=== PATIENT | female | born 1940 | race Caucasian/White ===

== ENCOUNTER 2018-08-04 08:16 | Day surgery (SDC) | payer MEDICARE, MEDICAID, SELFPAY ==
[2018-08-04] VITALS (15 sets, daily range): BP systolic 90–151; BP diastolic 63–88; PULSE 61–85; RESP 14–16; TEMP 36.1–36.5; O2SAT 94–100; BMI 22.4
--- NOTE | 2018-08-04 10:19 | PCM.HP.STD ---
Problem List (1) Urinary tract infection Status: Acute (2) Urinary retention Status: Acute (3) Neurogenic bladder Status: Acute History of Present Illness Date of Admission: 08/04/18 Chief Complaint: recurrent UTI with hematuria, urinary retention, neurogenic bladder The patient is a 78 year old F with a history of ruptured cerebral aneurysm with subsequent neurogenic bladder, urinary retention chronic suprapubic tube with recurrent urinary tract infections. She has been having gross hematuria with her infections and has not had a cystoscopy in some time. She did not tolerate attempted cystoscopy in the office. She now presents for evaluation under anesthesia. The family today reports that she has not been eating or drinking and has lost 18 pounds in the last month. She did present to the emergency room approximately 1 week ago received antibiotics and intravenous fluid resuscitation. She was doing well when I saw her in the office approximately 3 days after that. Family reports that she has had significant decrease in oral intake, has decreased interaction with the family and they are concerned about her overall health. Past Medical History Medical History: Medical History (Last Updated 08/04/18 @ 10:23 by Aniya Ramachandran MD) Hypothyroid E03.9 Neurogenic bladder N31.9 Urinary tract infection associated with cystostomy catheter T83.510A, N39.0 Allergies erythromycin base Allergy (Verified 08/04/18 08:45) Anaphylaxis levofloxacin [From Levaquin] Allergy (Verified 08/04/18 08:45) Anaphylaxis nitrofurantoin [From Macrodantin] Allergy (Verified 08/04/18 08:45) Hives Penicillins [PCN] Allergy (Verified 08/04/18 08:45) Hives Home Medications: Ambulatory Orders Medication Instructions Recorded Cranberry 500 mg PO DAILY 07/28/18 Ducolax Suppository 1 tab RECTALLY PRN PRN 07/28/18 Levetiracetam [Roweepra] 500 mg PO BID 07/28/18 Levothyroxine [Synthroid] 50 mcg PO DAILY 07/28/18 Stratton-3 Fatty Acids/Fish Oil [Fish 1 each PO DAILY 07/28/18 Oil 1,000 mg Capsule] Trimethoprim [Trimpex] 100 mg PO DAILY 07/28/18 Surgical History: - - suprapubic tube 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 Denies: Dysuria Gynecological: Denies: Breast symptoms Musculoskeletal: Reports: - - paralaysis and in wheelchair Skin: Reports: Rash - vaginal yeast Psychiatric: Denies: Anxiety Hematologic/ Lymphatic: Denies: Adenopathy, Anemia VTE Information - Inpt Only VTE Present on Admission: Yes VTE Mechan Device Prophylaxis: SCD's VTE Pharm Prophylaxis ordered?: Yes Patient Problems: Active and Suspected Problems Urinary tract infection (Acute) Urinary retention (Acute) Neurogenic bladder (Acute) - Physical Exam General: Alert HEENT: Atraumatic, Normocephalic Oral: Dry Mucosa Neck: Supple, Trachea Midline Lungs: Clear to auscultation Cardiovascular: Regular rate Abdomen: Soft, Tender - diffusely tender Skin: Rash Present - vaginal yeast Musculoskeletal: Muscle Wasting Neurological: Slurred Speech, - - 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
[2018-08-04] MEDS: Cefazolin 2 GM in 0.9% Normal Saline 100 ML IV (10:37)
--- NOTE | 2018-08-04 15:34 | OP.PCM_ITS ---
Problem List (1) Urinary tract infection Status: Acute (2) Urinary retention Status: Acute (3) Neurogenic bladder Status: Acute Report of Operation Date of Procedure: 08/04/18 Pre-Operative Diagnosis: urinary tract infections, left ureteral calculus with left hydronephrosis, bladder mass, urinary retention with neurogenic bladder Post-Operative Diagnosis: Same Surgery/Procedure Performed:: Cystoscopy, cystostomy change Description of Surgical Findings:: Bladder mass left bladder neck approximately 4 to 5 cm in size, obscuring the left ureteral orifice. Unable to pass ureteral stent, unable to identify ureteral orifice. Type of Anesthesia:: General Description of Procedure: The patient is a 78-year-old female who presented to my office 2 to 3 weeks ago with complaints of recurrent urinary tract infections. She has a remote history of a ruptured cerebral aneurysm and is paralyzed. She had a successful InterStim approximately 10 years ago that was never up capped and a suprapubic tube was inserted. She has not had annual cystoscopies or evaluations. On evaluation in the office I attempted cystoscopy but what was unable to visualize secondary to patient discomfort and hematuria. A CT scan of the abdomen and pelvis was ordered. The results of this CT scan revealed a right renal calculus, a left mid ureteral calculus with left hydronephrosis extending to the level of the bladder beyond the left ureteral calculus. It a lso showed a bladder mass and an abnormality of the rectum suspicious for malignancy. This was discussed with the patient and the family and we proceeded with cystoscopy and attempt at stent insertion. Informed consent was obtained. Patient was taken to the operating room and placed on the operating room table. Anesthesia monitored the head, neck, airway, IV access and vital signs throughout the case. Once anesthesia was appropriately administered the patient was placed into dorsal lithotomy position was prepped and draped in usual sterile fashion. Patient had significant vaginal yeast infection present. The area was cleansed with a Betadine prep. A cystourethroscopy was performed revealing a bladder mass at the area of the bladder neck on the left side obscuring the left ureteral orifice. Given the purulent nature of the urine and the inability to pass a stent the decision was made to change her suprapubic tube and proceed with percutaneous nephrostomy tube insertion and TUR and another time. The suprapubic tube was changed without difficulty. The urine was sent for culture. She was taken to the recovery room in stable condition. Grafts/Implants Used: none - Complications None - Admit VTE Documentation VTE Present on Admission: Yes VTE Mechan Device Prophylaxis: SCD's VTE Pharm Prophylaxis ordered?: No Reason prophylaxis not ordered:: Treatment Not Indicated - Patient will likely be undergoing insertion of a left nephrostomy tube and will hold on anticoagulation
[2018-08-04] MEDS: Lactated Ringers 1,000 ML 125 ML IV (19:25)
--- NOTE | 2018-08-04 20:54 | NURSING ---
Report called to Namita at [facility]
--- NOTE | 2018-08-04 22:00 | NURSING ---
Dr. Ramachandran paged to clarify whether pt should be transported to [facility] via BLS or ACLS squad. Dr. Ramachandran states that pt can be saline locked from her IV and go via BLS transport. [facility] Kristal contacted and state they will be here shortly. Mary, pt's daughter updated on transport plans and via notify Trae, pt's .
[2018-08-04] MEDS: levETIRAcetam 500 MG Tablet PO (22:02)
[2018-08-04] MEDS: 0.9% NaCl Peripheral Flush Adult/Peds IV (22:03)
== END 2018-08-04 22:25 | disposition short-term general hospital (02) ==
LOC: SDC 08:20 → AC 08:22 → MS3 08-05 09:24
PROVIDERS: Referring Provider Urology; Visit Provider Urology
PROC: 0TBB8ZX Excision of Bladder, Via Natural or Artificial Opening Endoscopic, Diagnostic (ICD-10-PCS; CPT 51710; principal; 2018-08-04 09:50)
DX: T83.510A Infection and inflammatory reaction due to cystostomy catheter, initial encounter (principal); N13.6 Pyonephrosis; B37.3 Candidiasis of vulva and vagina; N31.9 Neuromuscular dysfunction of bladder, unspecified; N32.9 Bladder disorder, unspecified; E03.9 Hypothyroidism, unspecified; Z88.1 Allergy status to other antibiotic agents; Z88.0 Allergy status to penicillin; Z79.899 Other long term (current) drug therapy
CPT/HCPCS: 00800; 51710; 76000; 87077; 87086; 87088; 87106; J7120; A4216; C1769; C2617; J2405